=== PATIENT | male | born 1995 | race Caucasian/White ===

== ENCOUNTER 2016-08-08 08:57 | Emergency (ER) | payer SELFPAY ==
[2016-08-08] MEDS ORDERED: ONDANSETRON 4 MG TAB.RAPDIS PO ONE (10:45)
[2016-08-08] MEDS ORDERED: KETOROLAC TROMETHAMINE 10 MG TABLET PO ONE (10:45)
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
[2016-08-08 19:02] VITALS: BP 126/68
== END 2016-08-08 12:56 | disposition home or self-care (01) ==
LOC: ER 08:57
DX: J06.9 Acute upper respiratory infection, unspecified (principal); B97.89 Other viral agents as the cause of diseases classified elsewhere; R50.9 Fever, unspecified; M79.1 Myalgia; R05 Cough; R09.81 Nasal congestion; R11.2 Nausea with vomiting, unspecified
CPT/HCPCS: 99283; 87070; 87880; 87804; 71020; S0119; J3490

== ENCOUNTER 2016-09-08 17:56 | Emergency (ER) | payer SELFPAY ==
[2016-09-08] MEDS ORDERED: IBUPROFEN 800 MG TABLET PO ONE (18:11)
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
[2016-09-08] MEDS ORDERED: HYDROCODONE/ACETAMINOPHEN 5-325 MG TABLET PO ONE (20:28)
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
[2016-09-08 21:11] VITALS: BP 122/88
== END 2016-09-08 21:06 | disposition home or self-care (01) ==
LOC: ER 17:56
PROC: 2W38X1Z Immobilization of Right Upper Extremity using Splint (ICD-10-PCS; principal; 2016-09-08)
DX: S53.401A Unspecified sprain of right elbow, initial encounter (principal); M25.521 Pain in right elbow; W22.01XA Walked into wall, initial encounter; J45.909 Unspecified asthma, uncomplicated
CPT/HCPCS: 99283

== ENCOUNTER 2017-02-18 02:51 | Emergency (ER) | payer SELFPAY ==
[2017-02-18] MEDS ORDERED: LIDOCAINE 1% INJ-PF (10 MG/ML) 30 ML SDV INJ ONE (03:06)
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
[2017-02-18 05:38] VITALS: BP 123/69
== END 2017-02-18 05:30 | disposition home or self-care (01) ==
LOC: ER 02:51
PROC: 0CQ1XZZ Repair Lower Lip, External Approach (ICD-10-PCS; principal; 2017-02-18)
PROC: 0HQ3XZZ Repair Left Ear Skin, External Approach (ICD-10-PCS; 2017-02-18)
DX: S01.312A Laceration without foreign body of left ear, initial encounter (principal); S01.511A Laceration without foreign body of lip, initial encounter; S00.83XA Contusion of other part of head, initial encounter; R07.81 Pleurodynia; R10.12 Left upper quadrant pain; Y04.2XXA Assault by strike against or bumped into by another person, initial encounter; F17.200 Nicotine dependence, unspecified, uncomplicated
CPT/HCPCS: 99284; 70450; 71260; 72125; 74177; 12013; L0172

== ENCOUNTER 2017-07-18 18:10 | Emergency (ER) | payer OTHER ==
[2017-07-18 18:37] VITALS: BP 119/62
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
[2017-07-18] MEDS ORDERED: KETOROLAC TROMETHAMINE INJ/PF 30 MG/1 ML SDV IM ONE (21:21)
[2017-07-18] MEDS ORDERED: KETOROLAC TROMETHAMINE INJ/PF 30 MG/1 ML SDV IV ONE (21:27)
== END 2017-07-18 21:58 | disposition home or self-care (01) ==
LOC: ER 18:10
DX: R07.89 Other chest pain (principal); M25.552 Pain in left hip; F17.200 Nicotine dependence, unspecified, uncomplicated; V89.2XXA Person injured in unspecified motor-vehicle accident, traffic, initial encounter
CPT/HCPCS: 99284; 96374; 73502; 71101; 74177; J1885

== ENCOUNTER 2018-03-23 04:33 | Emergency (ER) | payer OTHER ==
[2018-03-23 04:39] VITALS: BP 112/73
--- NOTE | 2018-03-23 04:57 | RADIOLOGY REPORT (SQ) ---
Left shoulder three view on 03/23/2018 at 5:11 AM CLINICAL INDICATION: Left shoulder pain after fall COMPARISON: None FINDINGS: The AC joint is well aligned. The glenohumeral joint is well located. There are no fractures. No bony abnormality is noted. IMPRESSION: No acute abnormality.
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
== END 2018-03-23 06:55 | disposition home or self-care (01) ==
LOC: ER 04:33
DX: S49.92XA Unspecified injury of left shoulder and upper arm, initial encounter (principal); W03.XXXA Other fall on same level due to collision with another person, initial encounter; Y92.89 Other specified places as the place of occurrence of the external cause; Y99.0 Civilian activity done for income or pay
CPT/HCPCS: 99283; 73030; L3650

== ENCOUNTER 2019-01-18 11:07 | Emergency (ER) | payer SELFPAY ==
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
[2019-01-18 14:53] VITALS: BP 122/84
== END 2019-01-18 14:53 | disposition home or self-care (01) ==
LOC: ER 11:07
DX: M54.2 Cervicalgia (principal); M25.572 Pain in left ankle and joints of left foot; R07.89 Other chest pain; V28.4XXA Motorcycle driver injured in noncollision transport accident in traffic accident, initial encounter
CPT/HCPCS: 99284; 73610; 70450; 71250; 72125; L0120; L1902

== ENCOUNTER 2019-01-28 01:42 | Emergency (ER) | payer SELFPAY ==
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
[2019-01-28 02:52] LABS: APPEARANCE,URINE CLEAR; BILIRUBIN,URINE NEGATIVE (NEGATIVE); COLOR,URINE YELLOW; GLUCOSE, URINE NEGATIVE (NEGATIVE); KETONES,URINE NEGATIVE (NEGATIVE); LEUKOCYTE ESTERASE,URINE NEGATIVE (NEGATIVE); NITRITE,URINE NEGATIVE (NEGATIVE); PROTEIN,URINE NEGATIVE (NEGATIVE); URINE SPECIFIC GRAVITY 1.021; UROBILINOGEN,URINE NEGATIVE mg/dL (<2.0)
[2019-01-28 03:30] LABS: ABSOLUTE BASOPHILS # (AUTO) 0.1 10^3/uL (0.0-0.2); ABSOLUTE EOSINOPHILS # (AUTO) 0.2 10^3/uL (0.0-0.6); ABSOLUTE LYMPHOCYTES (AUTO) 2.5 10^3/uL (0.5-4.7); ABSOLUTE MONOCYTES (AUTO) 0.9 10^3/uL (0.1-1.4); ABSOLUTE NEUT (AUTO) 6.8 10^3/uL (1.7-8.2); BASOPHILS % (AUTO) 0.8 % (0-2); EOSINOPHILS % (AUTO) 1.8 % (0-6); HEMATOCRIT 47.7 % (37.9-51.0); HEMOGLOBIN 16.4 g/dL (13.5-17.0); MEAN CORPUSCULAR HEMOGLOBIN 29.3 pg (27.0-33.4); MEAN CORPUSCULAR HGB CONC 34.4 g/dL (32.0-36.0); MEAN CORPUSCULAR VOLUME 85 fl (80-97); MONOCYTES % (AUTO) 8.5 % (3-13); PLATELET COUNT 276 10^3/uL (150-450); RED BLOOD COUNT 5.61 10^6/uL (4.35-5.55); RED CELL DISTRIBUTION WIDTH 13.2 % (11.5-14.0); SEGMENTED NEUTROPHILS % (AUTO) 64.9 % (42-78); TOTAL CELLS COUNTED % (AUTO) 100 %; WHITE BLOOD COUNT 10.5 10^3/uL (4.0-10.5)
[2019-01-28 03:41] LABS: ALBUMIN 3.6 g/dL (3.5-5.0); ALKALINE PHOSPHATASE 47 U/L (38-126); ANION GAP 8 (5-19); ASPARTATE AMINO TRANSFERASE 19 U/L (17-59); BILIRUBIN,DIRECT 0.2 mg/dL (0.0-0.4); BILIRUBIN,TOTAL 0.4 mg/dL (0.2-1.3); BLOOD UREA NITROGEN 18 mg/dL (7-20); CALCIUM 8.9 mg/dL (8.4-10.2); CARBON DIOXIDE 26 mmol/L (22-30); CHLORIDE 104 mmol/L (98-107); GLUCOSE 111 mg/dL (75-110); POTASSIUM 3.7 mmol/L (3.6-5.0); TOTAL PROTEIN 5.9 g/dL (6.3-8.2)
[2019-01-28 03:43] LABS: ACETAMINOPHEN < 10 ug/mL (10-30); ALCOHOL < 10 mg/dL (NONE DETECTED); SALICYLATE < 1.0 mg/dL (2.0-20.0)
[2019-01-28 04:50] LABS: URINE AMPHETAMINES SCREEN NEGATIVE; URINE BARBITURATES SCREEN NEGATIVE; URINE BENZODIAZEPINES SCREEN NEGATIVE; URINE MARIJUANA (THC) SCREEN NEGATIVE; URINE METHADONE SCREEN NEGATIVE; URINE PHENCYCLIDINE SCREEN NEGATIVE
[2019-01-28 04:51] LABS: URINE COCAINE SCREEN NEGATIVE
--- NOTE | 2019-01-28 10:12 | EKG REPORT ---
SEVERITY:- NORMAL ECG - SINUS RHYTHM : Confirmed by: Ailyn Cabral MD 28-Jan-2019 10:11:56
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
[2019-01-28 13:30] VITALS: BP 122/55
== END 2019-01-28 15:08 ==
LOC: ER 01:42
DX: R45.851 Suicidal ideations (principal); J45.909 Unspecified asthma, uncomplicated; F17.290 Nicotine dependence, other tobacco product, uncomplicated; Z63.0 Problems in relationship with spouse or partner; Z63.4 Disappearance and death of family member
CPT/HCPCS: 36415; 80053; 80307; 81001; 85025; 93005; 93010; 99285

== ENCOUNTER 2019-08-12 21:43 | Emergency (ER) | payer SELFPAY ==
[2019-08-12] MEDS ORDERED: ONDANSETRON HCL INJ/PF 4 MG/2 ML SDV IV ONE (22:05)
[2019-08-12] MEDS ORDERED: NORMAL SALINE 1000 ML 1,000 ML IV ONE ×2 (22:05→23:13)
--- NOTE | 2019-08-12 22:07 | ER Document Report ---
ED Medical Screen (RME) - General Chief Complaint: Vomiting Stated Complaint: VOMITING Time Seen by Provider: 08/12/19 22:03 Mode of Arrival: Medic Information source: Patient Notes: Patient states that he has had cough for the past several days. Patient states that he had Turkish food may have food poisoning. Patient states he has had nausea vomiting x6 episodes today. Patient complains of muscle spasms and chest discomfort. Patient complains of some shortness of breath. I have greeted and performed a rapid initial assessment of this patient. A comprehensive ED assessment and evaluation of the patient, analysis of test results and completion of the medical decision making process will be conducted by additional ED providers. TRAVEL OUTSIDE OF THE [place] IN LAST 30 DAYS: No - Related Data Allergies/Adverse Reactions: No Known Allergies Allergy (Verified 01/28/19 13:42) Past Medical History Pulmonary Medical History: Reports: Hx Asthma Renal/ Medical History: Denies: Hx Peritoneal Dialysis Infectious Medical History: Denies: Hx MRSA - Immunizations Immunizations up to date: Yes Hx Diphtheria, Pertussis, Tetanus Vaccination: Yes - states received last year Physical Exam - Vital signs Vitals: Temp Pulse Resp BP Pulse Ox 98.7 F 116 H 16 123/73 96 08/12/19 21:51 08/12/19 21:51 08/12/19 21:51 08/12/19 21:51 08/12/19 21:51 - Cardiovascular Rhythm: Tachycardia Heart sounds: S1 appreciated, S2 appreciated Murmur: No Course - Vital Signs Vital signs: Temp Pulse Resp BP Pulse Ox 98.7 F 116 H 16 123/73 96 08/12/19 21:51 08/12/19 21:51 08/12/19 21:51 08/12/19 21:51 08/12/19 21:51
[2019-08-12 22:47] LABS: HEMATOCRIT 48.9 % (37.9-51.0); HEMOGLOBIN 16.7 g/dL (13.5-17.0); MEAN CORPUSCULAR HEMOGLOBIN 29.1 pg (27.0-33.4); MEAN CORPUSCULAR VOLUME 86 fl (80-97); PLATELET COUNT 267 10^3/uL (150-450); RED BLOOD COUNT 5.72 10^6/uL (4.35-5.55); RED CELL DISTRIBUTION WIDTH 13.1 % (11.5-14.0); WHITE BLOOD COUNT 17.2 10^3/uL (4.0-10.5)
--- NOTE | 2019-08-12 22:47 | ER Document Report ---
ED General - General Chief Complaint: Nausea/Vomiting Stated Complaint: VOMITING Time Seen by Provider: 08/12/19 22:03 Mode of Arrival: Medic Information source: Patient Notes: Is 24-year-old male presents emergency department with complaints of nausea vomiting at least 6 times today. He also complains of cough over the past several days. Denies fever and diarrhea. 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 He reports it was just branches not logs. He reports he ate some [place] food and is wondering if that is what made him 6. He lives with roommates no other roommates are sick. Denies past medical history. TRAVEL OUTSIDE OF THE [place] IN LAST 30 DAYS: No - HPI Onset/Duration: Sudden Quality of pain: Achy Associated symptoms: Nonproductive cough, Nausea, Vomiting Exacerbated by: Denies Relieved by: Denies Similar symptoms previously: No Recently seen / treated by doctor: No - Related Data Allergies/Adverse Reactions: No Known Allergies Allergy (Verified 01/28/19 13:42) Past Medical History - General Information source: Patient - Social History Smoking Status: Current Every Day Smoker Chew tobacco use (# tins/day): No Frequency of alcohol use: Social Drug Abuse: None Occupation: food preparation supervisor Lives with: Friend Family History: Reviewed & Not Pertinent Patient has suicidal ideation: No Patient has homicidal ideation: No - Medical History Medical History: Negative Renal/ Medical History: Denies: Hx Peritoneal Dialysis Infectious Medical History: Denies: Hx MRSA Surgical Hx: Negative - Immunizations Immunizations up to date: Yes Hx Diphtheria, Pertussis, Tetanus Vaccination: Yes - states received last year Review of Systems - Review of Systems Notes: Review HPI for review of systems., All other systems negative Physical Exam - Vital signs Vitals: Temp Pulse Resp BP Pulse Ox 98.7 F 116 H 16 123/73 96 08/12/19 21:51 08/12/19 21:51 08/12/19 21:51 08/12/19 21:51 08/12/19 21:51 - Notes Notes: PHYSICAL EXAMINATION: GENERAL: Well-appearing and in no acute distress HEAD: Atraumatic, normocephalic. EYES: Pupils equal round and reactive to light, extraocular movements intact, sclera anicteric, conjunctiva are normal. ENT: nares patent, oropharynx clear without exudates. Moist mucous membranes. NECK: Normal range of motion, supple without lymphadenopathy LUNGS: CTAB and equal. No wheezes rales or rhonchi. HEART: Regular rate and rhythm without murmurs ABDOMEN: Soft,. No guarding, no rebound , generalized tenderness to palpation BACK: Denies pain EXTREMITIES: Normal range of motion, no pitting edema. No cyanosis. NEUROLOGICAL: Cranial nerves grossly intact. Normal sensory/motor exams. PSYCH: Normal mood, normal affect. SKIN: Warm, Dry, normal turgor, no rashes or lesions noted Course - Re-evaluation Re-evalutation: 08/13/19 01:30 This 24-year-old male presents with nausea vomiting at least 6 times today. Has not received a flu vaccine. Denies fever or diarrhea. Reports he ate some [place] food and has been sick since that time. He lives with friends and nobody else is ill. Patient is currently drinking p.o. fluids. He requesting more water. Reports he does not feel nauseated anymore he feels much better. 08/13/19 02:49 Patient does have elevated white count but I suspect that is from vomiting. Patient improved after fluids. Vital signs unremarkable. Chemistry is unremarkable. patient is currently drinking p.o. fluids.. Chest x-ray negati ve. Flu test negative. Patient was instructed on all results. Patient became very anxious. Reports his stomach still hurts. He is worried about his cough. Tessalon Perles, Toradol, and CT was ordered. CT with enteritis. Patient is sleeping soundly arouses easily. Reports he feels better. Patient is nontoxic looking with minimal abdominal tenderness with palpation no evidence of acute abdomen. He was instructed again on Zofran. Patient was instructed on all medications, cautioned to return for increasing pain, fever, vomiting, and concerns. Patient verbalized understanding. Laboratory 08/12/19 08/12/19 08/12/19 22:33 22:33 22:33 WBC 17.2 H RBC 5.72 H Hgb 16.7 Hct 48.9 MCV 86 MCH 29.1 MCHC 34.0 RDW 13.1 Plt Count 267 Lymph % (Auto) Not Reportable [place] % (Auto) Not Reportable Eos % (Auto) Not Reportable Baso % (Auto) Not Reportable Absolute Neuts (auto) Not Reportable Absolute Lymphs (auto) Not Reportable Absolute Monos (auto) Not Reportable Absolute Eos (auto) Not Reportable Absolute Basos (auto) Not Reportable Total Counted 100 Seg Neutrophils % Not Reportable Seg Neuts % (Manual) 84 H Lymphocytes % (Manual) 6 L Monocytes % (Manual) 7 Eosinophils % (Manual) 3 Basophils % (Manual) 0 Abs Neuts (Manual) 14.4 H Abs Lymphs (Manual) 1.0 Abs Monocytes (Manual) 1.2 Absolute Eos (Manual) 0.5 Abs Basophils (Manual) 0.0 Clumped Platelets PRESENT Platelet Comment ADEQUATE RBC Morph Comment NORMO-CYTIC/CHROMIC Sodium 139.3 Potassium 4.1 Chloride 104 Carbon Dioxide 22 Anion Gap 13 BUN 29 H Creatinine 0.99 Est GFR ( Amer) > 60 Est GFR (MDRD) Non-Af > 60 Glucose 102 Calcium 9.5 Total Bilirubin 0.8 Direct Bilirubin 0.3 Neonat Total Bilirubin Not Reportable Neonat Direct Bilirubin Not Reportable Neonat Indirect Bili Not Reportable AST 30 ALT 24 Alkaline Phosphatase 73 Creatine Kinase 272 H Troponin I < 0.012 Total Protein 8.0 Albumin 4.6 Lipase 65.0 Urine Color Urine Appearance Urine pH Ur Specific [place] Urine Protein Urine Glucose (UA) Urine Ketones Urine Blood Urine Nitrite Urine Bilirubin Urine Urobilinogen Ur Leukocyte Esterase Urine WBC (Auto) Urine RBC (Auto) Urine Mucus (Auto) Urine Ascorbic Acid Urine Opiates Screen Urine Methadone Screen Ur Barbiturates Screen Ur Phencyclidine Scrn Ur Amphetamines Screen U Benzodiazepines Scrn Urine Cocaine Screen U Marijuana (THC) Screen Influenza A (Rapid) Influenza B (Rapid) 08/13/19 08/13/19 08/13/19 00:26 01:38 01:38 WBC RBC Hgb Hct MCV MCH MCHC RDW Plt Count Lymph % (Auto) [place] % (Auto) Eos % (Auto) Baso % (Auto) Absolute Neuts (auto) Absolute Lymphs (auto) Absolute Monos (auto) Absolute Eos (auto) Absolute Basos (auto) Total Counted Seg Neutrophils % Seg Neuts % (Manual) Lymphocytes % (Manual) Monocytes % (Manual) Eosinophils % (Manual) Basophils % (Manual) Abs Neuts (Manual) Abs Lymphs (Manual) Abs Monocytes (Manual) Absolute Eos (Manual) Abs Basophils (Manual) Clumped Platelets Platelet Comment RBC Morph Comment Sodium Potassium Chloride Carbon Dioxide Anion Gap BUN Creatinine Est GFR ( Amer) Est GFR (MDRD) Non-Af Glucose Calcium Total Bilirubin Direct Bilirubin Neonat Total Bilirubin Neonat Direct Bilirubin Neonat Indirect Bili AST ALT Alkaline Phosphatase Creatine Kinase Troponin I Total Protein Albumin Lipase Urine Color YELLOW Urine Appearance CLEAR Urine pH 5.0 Ur Specific [place] 1.027 Urine Protein NEGATIVE Urine Glucose (UA) NEGATIVE Urine Ketones TRACE H Urine Blood NEGATIVE Urine Nitrite NEGATIVE Urine Bilirubin NEGATIVE Urine Urobilinogen 2.0 H Ur Leukocyte Esterase TRACE H Urine WBC (Auto) 4 Urine RBC (Auto) 1 Urine Mucus (Auto) FEW Urine Ascorbic Acid NEGATIVE Urine Opiates Screen NEGATIVE Urine Methadone Screen NEGATIVE Ur Barbiturates Screen NEGATIVE Ur Phencyclidine Scrn NEGATIVE Ur Amphetamines Screen NEGATIVE U Benzodiazepines Scrn NEGATIVE Urine Cocaine Screen NEGATIVE U Marijuana (THC) Screen NEGATIVE Influenza A (Rapid) NEGATIVE Influenza B (Rapid) NEGATIVE 08/13/19 02:50 Chest X-Ray 08/12/19 22:04 IMPRESSION: Negative chest copyright 2010 [employer]- All Rights Reserved 08/13/19 03:10 08/13/19 05:34 Chest X-Ray 08/12/19 22:04 IMPRESSION: Negative chest copyright 2010 [employer]- All Rights Reserved Abdomen/Pelvis CT 08/13/19 03:02 IMPRESSION: 1. Findings compatible with acute nonspecific enteritis which may be of infectious or inflammatory etiology. 2. Nonobstructing left nephrolithiasis. This exam was performed according to our departmental dose-optimization program, which includes automated exposure control, adjustment of the mA and/or kV according to patient size and/or use of iterative reconstruction technique. - Vital Signs Vital signs: Temp Pulse Resp BP Pulse Ox 98.7 F 116 H 22 H 130/65 H 97 08/12/19 21:51 08/12/19 21:51 08/13/19 04:01 08/13/19 04:01 08/13/19 04:01 - Laboratory Result Diagrams: 08/12/19 22:33 08/12/19 22:33 Laboratory results interpreted by me: 08/12/19 08/12/19 08/13/19 22:33 22:33 01:38 WBC 17.2 H RBC 5.72 H Seg Neuts % (Manual) 84 H Lymphocytes % (Manual) 6 L Abs Neuts (Manual) 14.4 H BUN 29 H Creatine Kinase 272 H Urine Ketones TRACE H Urine Urobilinogen 2.0 H Ur Leukocyte Esterase TRACE H - Diagnostic Test Radiology reviewed: Image reviewed, Reports reviewed - EKG Interpretation by Me EKG shows normal: Sinus rhythm Rate: Tachycardia Additional EKG results interpreted by me: 08/13/19 03:[address] elevation no t wave inversion Discharge - Discharge Clinical Impression: Enteritis Nausea & vomiting Qualifiers: Vomiting type: unspecified Vomiting Intractability: non-intractable Qualified Code(s): R11.2 - Nausea with vomiting, unspecified Condition: Stable Disposition: HOME, SELF-CARE Instructions: Antinausea Medication ([facility]), Intravenous (IV) Fluids ([facility]), Toradol Injection ([facility]), Vomiting ([facility]) Additional Instructions: *You have been evaluated for nausea/vomiting, enteritis *Take medication as prescribed for nausea *Clear liquid diet advance as tolerated *Monitor your temperature, take Tylenol as indicated for fever and pain *Ensure adequate fluid intake as discussed to prevent dehydration *Follow up with a primary care provider within one week for recheck *Return to ED for worsening condition, changes, needs, return of vomiting, concerns Forms: Elevated Blood Pressure, Return to Work
[2019-08-12 23:04] LABS: ABSOLUTE MONOCYTES # (MANUAL) 1.2 10^3/uL (0.1-1.4); BASOPHILS % (MANUAL) 0 % (0-2); EOSINOPHILS % (MANUAL) 3 % (0-6); LYMPHOCYTES % (MANUAL) 6 % (13-45); MONOCYTES % (MANUAL) 7 % (3-13); SEGMENTED NEUTROPHILS % (MAN) 84 % (42-78); TOTAL CELLS COUNTED 100
[2019-08-12 23:05] LABS: ALBUMIN 4.6 g/dL (3.5-5.0); ALKALINE PHOSPHATASE 73 U/L (38-126); ANION GAP 13 (5-19); ASPARTATE AMINO TRANSFERASE 30 U/L (17-59); BILIRUBIN,DIRECT 0.3 mg/dL (0.0-0.4); BILIRUBIN,TOTAL 0.8 mg/dL (0.2-1.3); BLOOD UREA NITROGEN 29 mg/dL (7-20); CALCIUM 9.5 mg/dL (8.4-10.2); CARBON DIOXIDE 22 mmol/L (22-30); CHLORIDE 104 mmol/L (98-107); CREATINE KINASE 272 U/L (55-170); GLUCOSE 102 mg/dL (75-110); PLATELET CLUMPS PRESENT; PLATELET COMMENT ADEQUATE; POTASSIUM 4.1 mmol/L (3.6-5.0); RBC MORPHOLOGY COMMENT NORMO-CYTIC/CHROMIC
--- NOTE | 2019-08-12 23:29 | RADIOLOGY REPORT (SQ) ---
EXAM DESCRIPTION: XR CHEST 1 VIEW COMPLETED DATE/TME: 08/12/2019 22:04 CLINICAL HISTORY: 24 years, Male, cp COMPARISON: 07/18/2017 chest NUMBER OF VIEWS: 1 TECHNIQUE: Portable chest LIMITATIONS: None. FINDINGS: The heart size is normal. Lungs are clear. There is no pneumothorax IMPRESSION: Negative chest copyright 2010 [employer]- All Rights Reserved
[2019-08-13 01:04] LABS: A TYPE INFLUENZA AG NEGATIVE (NEGATIVE); B INFLUENZA AG NEGATIVE (NEGATIVE)
[2019-08-13 02:02] LABS: APPEARANCE,URINE CLEAR; BILIRUBIN,URINE NEGATIVE (NEGATIVE); COLOR,URINE YELLOW; GLUCOSE, URINE NEGATIVE (NEGATIVE); KETONES,URINE TRACE mg/dL (NEGATIVE); LEUKOCYTE ESTERASE,URINE TRACE (NEGATIVE); NITRITE,URINE NEGATIVE (NEGATIVE); PROTEIN,URINE NEGATIVE (NEGATIVE); URINE SPECIFIC GRAVITY 1.027
[2019-08-13 02:33] LABS: URINE AMPHETAMINES SCREEN NEGATIVE; URINE BARBITURATES SCREEN NEGATIVE; URINE BENZODIAZEPINES SCREEN NEGATIVE; URINE COCAINE SCREEN NEGATIVE; URINE MARIJUANA (THC) SCREEN NEGATIVE; URINE METHADONE SCREEN NEGATIVE; URINE PHENCYCLIDINE SCREEN NEGATIVE
[2019-08-13] MEDS ORDERED: ONDANSETRON ODT 4 MG TAB (6 TAB/ER DISP) PO PRN (02:48)
[2019-08-13] MEDS ORDERED: BENZONATATE 100 MG CAPSULE PO ONE (03:02)
[2019-08-13] MEDS ORDERED: KETOROLAC TROMETHAMINE INJ/PF 30 MG/1 ML SDV IV ONE (03:02)
--- NOTE | 2019-08-13 04:14 | RADIOLOGY REPORT (SQ) ---
EXAM DESCRIPTION: CT ABDOMEN PELVIS WITH IV CONTRAST COMPLETED DATE/TME: 08/13/2019 03:02 CLINICAL HISTORY: abdominal pain, vomiting COMPARISON: 07/18/2017 TECHNIQUE: CT of the abdomen and pelvis performed following IV administration of 100 mL of Omnipaque 350. FINDINGS: Lung Bases: The visualized lung bases are clear. Bones: No destructive bone lesions identified. Abdomen: Liver: The liver has normal size and density. No intrahepatic mass or biliary dilatation. Gallbladder: No calcified gallstones. Spleen, Pancreas, and Adrenal Glands: The spleen, pancreas, and adrenal glands are unremarkable. Kidneys: No hydronephrosis. Nonobstructing left nephrolithiasis. Vasculature: The aorta and IVC have normal caliber and position. The portal vein is patent. The proximal visceral and renal arteries are patent. Stomach: The stomach and duodenum have normal course. Other: No free intraperitoneal air. No free fluid or lymphadenopathy. Pelvis: Bladder: Urinary bladder is unremarkable. Bowel: Wall thickening of multiple loops small bowel. Appendix: Normal appendix. Pelvis: Prostate is not enlarged. IMPRESSION: 1. Findings compatible with acute nonspecific enteritis which may be of infectious or inflammatory etiology. 2. Nonobstructing left nephrolithiasis. This exam was performed according to our departmental dose-optimization program, which includes automated exposure control, adjustment of the mA and/or kV according to patient size and/or use of iterative reconstruction technique.
[2019-08-13 04:38] VITALS: BP 130/65
--- NOTE | 2019-08-13 07:26 | EKG REPORT ---
SEVERITY:- OTHERWISE NORMAL ECG - SINUS TACHYCARDIA : Confirmed by: Galo Bolden MD 13-Aug-2019 07:25:33
== END 2019-08-13 04:34 | disposition home or self-care (01) ==
LOC: ER 21:43
DX: K52.9 Noninfective gastroenteritis and colitis, unspecified (principal); R11.2 Nausea with vomiting, unspecified; R05 Cough; R10.817 Generalized abdominal tenderness; W22.8XXA Striking against or struck by other objects, initial encounter; F17.200 Nicotine dependence, unspecified, uncomplicated; D72.829 Elevated white blood cell count, unspecified; N20.0 Calculus of kidney
CPT/HCPCS: 93005; 99285; 96361; 96374; 96375; 36415; 82550; 83690; 85025; 80053; 81001; 84484; 80307; 87804; 71045; 74177; 93010; J1885; J2405; J7030

== ENCOUNTER 2019-10-27 11:58 | Emergency (ER) | payer SELFPAY ==
[2019-10-27] MEDS ORDERED: METHYLPREDNISOLONE INJ 125 MG/2 ML SDV IV ONE (12:08)
[2019-10-27] MEDS ORDERED: FAMOTIDINE INJ/PF 20 MG/2 ML SDV IV ONE (12:09)
--- NOTE | 2019-10-27 12:11 | ER Document Report ---
ED Medical Screen (RME) - General Chief Complaint: Swelling Stated Complaint: INSECT BITE Time Seen by Provider: 10/27/19 12:03 Mode of Arrival: Wheelchair Notes: HPI; 24-year-old male no previous medical problems presents to the emergency room complaining of left rib pain and facial swelling. States he was helping a friend work on their house he was laying underneath some drywall when the insulation and boards fell landing on him. States his face started swelling he is having left anterior rib pain. States that it hurts to take a deep breath but denies difficulty breathing or chest pain. Unsure if he may have been bitten by anything. States he took 75 mg of Benadryl just prior to arrival without relief. No history of allergies. PE: Alert and oriented x3, moderate distress noted. Face is erythematous no obvious rashes noted. Lungs were clear to auscultation without rales rhonchi or wheezes. Heart: Regular rate rhythm without murmurs rubs or gallops. Tenderness with questionable deformity noted to the left anterior lower ribs. I have greeted and performed a rapid initial assessment of this patient. A comprehensive ED assessment and evaluation of the patient, analysis of test results and completion of the medical decision making process will be conducted by additional ED providers. I have specifically instructed the patient or family members with the patient to immediately return to any nursing staff should anything change in the patient's condition or with their chief complaint. TRAVEL OUTSIDE OF THE [place] IN LAST 30 DAYS: No - Related Data Allergies/Adverse Reactions: No Known Allergies Allergy (Verified 01/28/19 13:42) Past Medical History Pulmonary Medical History: Reports: Hx Asthma Renal/ Medical History: Denies: Hx Peritoneal Dialysis Infectious Medical History: Denies: Hx MRSA - Immunizations Immunizations up to date: Yes Hx Diphtheria, Pertussis, Tetanus Vaccination: Yes - states received last year
[2019-10-27] MEDS ORDERED: KETOROLAC TROMETHAMINE INJ/PF 30 MG/1 ML SDV IV ONE (12:14)
--- NOTE | 2019-10-27 12:18 | ER Document Report ---
ED General - General Chief Complaint: Swelling Stated Complaint: INSECT BITE Time Seen by Provider: 10/27/19 12:03 Mode of Arrival: Wheelchair Information source: Patient Notes: Patient is a 24-year-old male presenting to the emergency department chief complaint of exposure to insulation while doing home repairs. Patient states since the insulation fell on him his face is been swollen and itchy. Patient states he is also been short of breath. Patient states he took a total of 75 mg of Benadryl just before coming to the emergency department. Patient states that this seems to have reaggravated a cold football injury from high school and he is having difficulties with deep inspiration secondary to left-sided rib pain. TRAVEL OUTSIDE OF THE [place] IN LAST 30 DAYS: No - HPI Onset: Just prior to arrival Onset/Duration: Sudden Quality of pain: Throbbing Severity: Mild Pain Level: 1 Associated symptoms: Shortness of breath Exacerbated by: Deep breathing Relieved by: Denies Similar symptoms previously: No Recently seen / treated by doctor: No - Related Data Allergies/Adverse Reactions: No Known Allergies Allergy (Verified 01/28/19 13:42) Past Medical History - General Information source: Patient, [facility] Records - Social History Smoking Status: Current Every Day Smoker Cigarette use (# per day): Yes Chew tobacco use (# tins/day): No Smoking Education Provided: Yes Frequency of alcohol use: None Drug Abuse: None Lives with: Family Family History: Reviewed & Not Pertinent Patient has suicidal ideation: No Patient has homicidal ideation: No Pulmonary Medical History: Reports: Hx Asthma Renal/ Medical History: Denies: Hx Peritoneal Dialysis Infectious Medical History: Denies: Hx MRSA - Immunizations Immunizations up to date: Yes Hx Diphtheria, Pertussis, Tetanus Vaccination: Yes - states received last year Review of Systems - Review of Systems Notes: REVIEW OF SYSTEMS: CONSTITUTIONAL : Denies fever, chills, or sweats. Denies recent illness. EENT: Per HPI CARDIOVASCULAR: Denies chest pain. RESPIRATORY: Per HPI GASTROINTESTINAL: Denies abdominal pain. Denies nausea, vomiting, or diarrhea. Denies constipation. GENITOURINARY: Denies difficulty urinating, painful urination, burning, frequency, or blood in urine. MUSCULOSKELETAL: Denies neck or back pain or joint pain or swelling. SKIN: Per HPI HEMATOLOGIC : Denies easy bruising or bleeding. NEUROLOGICAL: Denies altered mental status or loss of consciousness. Denies headache. Denies weakness or paralysis or loss of use of either side. Denies problems with gait or speech. Denies sensory or motor loss. PSYCHIATRIC: Denies suicidal or homicidal ideations 10 Systems are negative unless otherwise specified above Physical Exam - Vital signs Vitals: Temp 98.1 F 10/27/19 11:58 - Notes Notes: PHYSICAL EXAMINATION: GENERAL: Patient is a 24-year-old male does have mild swelling to the right lateral upper eyelid patient seems quite somnolent HEAD: Atraumatic, normocephalic. EYES: Pupils equal round and reactive to light, extraocular movements intact, sclera anicteric, conjunctiva are normal. ENT: nares patent, oropharynx clear without exudates. Moist mucous membranes. NECK: Normal range of motion, supple without lymphadenopathy, no appreciable JVD LUNGS: Lungs clear to auscultation bilaterally and equal. No wheezes rales or rhonchi. Patient is complaining of left-sided rib pain HEART: Regular rate and rhythm without murmurs ABDOMEN: Soft, nontender, normal bowel sounds. No guarding, no rebound. No masses appreciated. EXTREMITIES: Active full range of motion, no pitting or edema. No cyanosis. 2+ pulses x4 NEUROLOGICAL: No focal neurological deficits. Moves all extremities spontaneously and on command. Patient appears somnolent which is most likely s econdary to Benadryl. SKIN: Warm, Dry, and intact. Normal turgor, no rashes or lesions noted. Patient does have sunburn to the forehead there is minimal swelling to the upper lateral right eyelid. Course - Re-evaluation Re-evalutation: 10/27/19 13:25 Patient has been reevaluated several times while in the emergency department the patient remained stable without decompensation. Patient was given Toradol Solu- Medrol and Pepcid in the emergency department. I discussed the negative radiologic results with the patient recommend [id number] Benadryl only as prescribed and patient will be given prescription for Pepcid to help with any allergic reaction to the insulation. Patient will be discharged home in stable condition. - Vital Signs Vital signs: Temp Pulse Resp BP Pulse Ox 98.1 F 10/27/19 11:58 - Diagnostic Test Radiology reviewed: Image reviewed, Reports reviewed Discharge - Discharge Clinical Impression: Allergic reaction Qualifiers: Encounter type: initial encounter Qualified Code(s): T78.40XA - Allergy, unspecified, initial encounter Rib contusion Qualifiers: Encounter type: initial encounter Laterality: left Qualified Code(s): S20.212A - Contusion of left front wall of thorax, initial encounter Condition: Stable Disposition: HOME, SELF-CARE Additional Instructions: Allergic Contact Dermatitis You have a local allergic reaction, called contact dermatitis. This an allergy to something in contact with your skin. Poison isabel, jewelry, soaps, perfumes, and chemicals are common causes. Typically, an itchy rash develops a few days after the exposure. If the reaction is severe, blisters may develop. Two to three weeks may be required for healing. Generally, treatment consists of: (1) a thorough washing with soap to remove the offending substance, (2) application of a cortisone cream, and (3) antihistamines for itching. If the reaction is particularly severe, further measures may be required. These can include soaking in epsom salts or Cris's solution, and oral cortisone medications. Call the doctor if the rash worsens despite treatment, or if signs of infection occur such as spreading redness, red streaks, swollen glands, swelling, or fever. Contusion Your injury has resulted in a contusion -- a crushing of the deep tissues. No injury to important structures was detected during the physician's exam. Contusions vary in the amount of pain they cause, and in the length of time required for healing. Typically, the area will become bruised, and will remain painful to touch for two or three weeks. However, most patients are back to working and playing within a few days. After the initial period of rest and cold-packs, your symptoms (together with the doctor's recommendations) will determine how rapidly you can get back to full activity. Usually this means "do what feels okay, but don't do things that hurt." If re-examination was recommended, it's important to follow up as instructed. Call the doctor or return any time if pain increases, if swelling becomes severe, if you develop numbness or weakness in an injured extremity, or if any other alarming symptoms occur. Prescriptions: Famotidine [Pepcid] 20 mg PO BID #14 tablet Forms: Return to Work
--- NOTE | 2019-10-27 13:23 | RADIOLOGY REPORT (SQ) ---
EXAM DESCRIPTION: RIBS LEFT W/PA CHEST IMAGES COMPLETED DATE/TIME: 10/27/2019 12:58 pm REASON FOR STUDY: pain/injury COMPARISON: 04/03/2011 TECHNIQUE: Frontal view of the chest and additional views of the left ribs acquired. NUMBER OF VIEWS: Four view. LIMITATIONS: None. FINDINGS: FRONTAL CXR: No pneumothorax. No pleural effusion. No atelectasis or infiltrates. RIBS: No displaced rib fractures. No lytic or blastic bony lesions. OTHER: No other significant finding. IMPRESSION: NO PNEUMOTHORAX. NO DISPLACED RIB FRACTURES. COMMENT: SITE OF TRAUMA/COMPLAINT MARKED/STAMP COMPLETED: NO. TECHNICAL DOCUMENTATION: JOB ID: [id number] 2010 [email or web address]- All Rights Reserved Reading location - IP/workstation name: [email or web address]
[2019-10-27 14:09] VITALS: BP 111/89
== END 2019-10-27 14:08 | disposition home or self-care (01) ==
LOC: ER 11:58
DX: T78.40XA Allergy, unspecified, initial encounter (principal); S20.212A Contusion of left front wall of thorax, initial encounter; R22.0 Localized swelling, mass and lump, head; R06.02 Shortness of breath; W22.8XXA Striking against or struck by other objects, initial encounter; F17.210 Nicotine dependence, cigarettes, uncomplicated; J45.909 Unspecified asthma, uncomplicated
CPT/HCPCS: 99283; 96374; 96375; 71101; J2930; J1885; S0028